=== PATIENT | female | born 1975 | race Caucasian/White ===

== ENCOUNTER 2017-09-13 04:53 | Emergency (ER) | payer MEDICAID ==
[2017-09-13 04:59] VITALS: BMI 62.6
[2017-09-13 05:02] VITALS: TEMP 97.6
[2017-09-13] MEDS ORDERED: DiphenhydrAMINE 50 mg/ml Inj IV STA (05:06)
--- NOTE | 2017-09-13 05:10 | ED PDOC ---
HPI: Allergic Reaction Time Seen by Provider: 09/13/17 04:57 Chief Complaint (Nursing): Allergic Reaction Chief Complaint (Provider): allergic reaction History Per: Patient History/Exam Limitations: no limitations Onset/Duration Of Symptoms: Hrs Current Symptoms Are (Timing): Still Present Possible Cause: Medication Associated Symptoms: Skin Rash, Swelling, Dyspnea Additional History Per: Patient Additional Complaint(s): 41 y/o female presents with allergic reaction x 4 hours. Patient states she has been taking an antibiotic, name unknown, given by a friend for a possible sinus infection for 5 days; notes yesterday to have developed a few red bumps to her skin. Patient states as of a few hours ago the bumps became worse and itchy, with swelling to lower lip, and difficulty breathing. Patient was given a claritin by her friend 1 hour prior to arrival with little improvement of symptoms. Aside from antibiotic, patient denies known allergen. Denies fever, headache, dizziness, nausea/vomiting, chest pain, palpitations, abdominal pain Past Medical History Reviewed: Historical Data, Nursing Documentation, Vital Signs Vital Signs: Last Vital Signs Temp 97.6 F 09/13/17 04:59 Pulse 101 H 09/13/17 04:59 Resp 18 09/13/17 04:59 BP 200/105 H 09/13/17 04:59 Pulse Ox 99 09/13/17 04:59 - Medical History PMH: No Chronic Diseases - Surgical History Surgical History: No Surg Hx - Family History Family History: States: No Known Family Hx - Home Medications Home Medications: Ambulatory Orders Medication Instructions Recorded DiphenhydrAMINE [Benadryl] 50 mg PO Q6 PRN #30 cap 09/13/17 Famotidine [Pepcid] 20 mg PO BID #8 tab 09/13/17 predniSONE [Prednisone] 60 mg PO DAILY #12 tab 09/13/17 - Allergies Allergies/Adverse Reactions: Allergies Allergy/AdvReac Type Severity Reaction Status Date / Time No Known Allergies Allergy Verified 09/13/17 04:59 Review of Systems ROS Statement: Except As Marked, All Systems Reviewed And Found Negative ENT: Positive for: Other (lip swelling) Respiratory: Positive for: Shortness of Breath Skin: Positive for: Rash Physical Exam - Reviewed Nursing Documentation Reviewed: Yes Vital Signs Reviewed: Yes - Physical Exam Appears: Positive for: Well, Non-toxic, No Acute Distress (speaking in full sentences) Head Exam: Positive for: ATRAUMATIC, NORMAL INSPECTION, NORMOCEPHALIC Skin: Positive for: Rash (diffuse hives) Eye Exam: Positive for: Normal appearance, EOMI, PERRL ENT: Positive for: Other (left lower lip swelling. Uvula midline. Airway patent) . Negative for: Nasal Congestion, Pharyngeal Erythema, Tonsillar Swelling Cardiovascular/Chest: Positive for: Regular Rate, Rhythm Respiratory: Positive for: Normal Breath Sounds Gastrointestinal/Abdominal: Positive for: Normal Exam Extremity: Positive for: Normal ROM Neurologic/Psych: Positive for: Alert, Oriented - ECG O2 Sat by Pulse Oximetry: 99 Disposition - Clinical Impression Clinical Impression: Allergic reaction - Patient ED Disposition Is Patient to be Admitted: No - Disposition Disposition: Transfer of Care Disposition Time: 06:00 Condition: FAIR Prescriptions: DiphenhydrAMINE [Benadryl] 50 mg PO Q6 PRN #30 cap PRN Reason: Allergy Symptoms Famotidine [Pepcid] 20 mg PO BID #8 tab predniSONE [Prednisone] 60 mg PO DAILY #12 tab Forms: [employer] (Telugu) Patient Signed Over To: Paul Whitman Handoff Comments: pending re-eval
[2017-09-13 06:24] VITALS: RESP 20
--- NOTE | 2017-09-13 06:27 | ED PDOC ---
- ECG O2 Sat by Pulse Oximetry: 100 (RA) Pulse Ox Interpretation: Normal Medical Decision Making Medical Decision Making: Time: 6:00 --Patient signed out to me by Jaelyn Duncan PA-C pending reevaluation. Time: 7:00 --Patient signed out by me to Dr. Miguelangel Salvador MD pending reevaluation. Scribe Attestation: Documented by Arthur Be, acting as a scribe for Paul Whitman MD Provider Scribe Attestation: All medical record entries made by the Scribe were at my direction and personally dictated by me. I have reviewed the chart and agree that the record accurately reflects my personal performance of the history, physical exam, medical decision making, and the department course for this patient. I have also personally directed, reviewed, and agree with the discharge instructions and disposition. Disposition - Clinical Impression Clinical Impression: Allergic reaction - POA Present On Arrival: None - Disposition Disposition: Transfer of Care Disposition Time: 07:00 Condition: STABLE Prescriptions: DiphenhydrAMINE [Benadryl] 50 mg PO Q6 PRN #30 cap PRN Reason: Allergy Symptoms Famotidine [Pepcid] 20 mg PO BID #8 tab predniSONE [Prednisone] 60 mg PO DAILY #12 tab Instructions: General Allergic Reaction (ED) Forms: [employer] (Bangladeshi)
[2017-09-13 08:06] VITALS: BP 106/74; PULSE 78
--- NOTE | 2017-09-13 08:11 | ED PDOC ---
- ECG O2 Sat by Pulse Oximetry: 99 - Progress Re-evaluation Time: 08:10 Condition: Improved Disposition - Clinical Impression Clinical Impression: Allergic reaction - POA Present On Arrival: None - Disposition Disposition: Routine/Home Disposition Time: 08:10 Condition: FAIR Prescriptions: DiphenhydrAMINE [Benadryl] 50 mg PO Q6 PRN #30 cap PRN Reason: Allergy Symptoms Famotidine [Pepcid] 20 mg PO BID #8 tab predniSONE [Prednisone] 60 mg PO DAILY #12 tab Instructions: General Allergic Reaction (ED) Forms: [facility] (Colombian)
[2017-09-14 04:09] VITALS: O2SAT 100
== END 2017-09-13 08:35 | disposition home or self-care (01) ==
LOC: H.ER 04:53
DX: T78.40XA Allergy, unspecified, initial encounter (principal)
CPT/HCPCS: 96374; 96375; 99283; J1200; J2930

== ENCOUNTER 2018-12-23 21:22 | Emergency (ER) | payer BC, MEDICAID ==
[2018-12-23 21:22] VITALS: BMI 62.6
[2018-12-23 21:35] VITALS: O2SAT 98
[2018-12-23] MEDS ORDERED: Alum-Mag Hydrox-Simethicone Susp (30 mL) PO ONE (21:57)
[2018-12-23] MEDS ORDERED: Alum-Mag Hydrox-Simethicone Susp (30 mL) ONE (22:04)
--- NOTE | 2018-12-23 22:22 | ED PDOC ---
HPI: General Adult Time Seen by Provider: 12/23/18 21:44 Chief Complaint (Nursing): ENT Problem Chief Complaint (Provider): ENT Problem History Per: Patient History/Exam Limitations: no limitations Onset/Duration Of Symptoms: Mins Current Symptoms Are (Timing): Gone Now Additional Complaint(s): 43 y/o female with a PMHx of gastric bypass presents to the ED for evaluation of a nose bleed, onset less than one hour prior to arrival. Patient states she though it was a runny nose and blood was retracted in towards the throat. Patient reports of swallowing it accidentally and developing a stomach ache shortly after. Patient reports of feeling like she wanted to vomit. Patient states bleeding stopped prior to arrival and is feeling much better now. PMD: in [place], [place] Past Medical History Reviewed: Historical Data, Nursing Documentation, Vital Signs Vital Signs: Last Vital Signs Temp 98.4 F 12/23/18 21:32 Pulse 71 12/23/18 21:32 Resp 17 12/23/18 21:32 BP Pulse Ox 98 12/23/18 21:32 - Medical History PMH: No Chronic Diseases - Surgical History Surgical History: No Surg Hx - Family History Family History: States: Unknown Family Hx - Immunization History Hx Tetanus Toxoid Vaccination: No Hx Influenza Vaccination: No Hx Pneumococcal Vaccination: No - Home Medications Home Medications: Ambulatory Orders Medication Instructions Recorded DiphenhydrAMINE [Benadryl] 50 mg PO Q6 PRN #30 cap 09/13/17 Famotidine [Pepcid] 20 mg PO BID #8 tab 09/13/17 predniSONE [Prednisone] 60 mg PO DAILY #12 tab 09/13/17 - Allergies Allergies/Adverse Reactions: Allergies Allergy/AdvReac Type Severity Reaction Status Date / Time No Known Allergies Allergy Verified 09/13/17 04:59 Review of Systems ENT: Positive for: Other (NOSE BLEED) Gastrointestinal: Positive for: Nausea Physical Exam - Reviewed Nursing Documentation Reviewed: Yes Vital Signs Reviewed: Yes - Physical Exam Appears: Positive for: No Acute Distress Head Exam: Positive for: ATRAUMATIC, NORMOCEPHALIC Skin: Positive for: Normal Color, Warm, Dry Eye Exam: Positive for: Normal appearance, EOMI, PERRL ENT: Positive for: Other (Dried blood noted in the left nare) Neck: Positive for: Normal, Painless ROM Cardiovascular/Chest: Positive for: Regular Rate, Rhythm. Negative for: Murmur Respiratory: Positive for: Normal Breath Sounds. Negative for: Respiratory Distress Gastrointestinal/Abdominal: Positive for: Normal Exam, Soft. Negative for: Tenderness Extremity: Positive for: Normal ROM. Negative for: Deformity Neurologic/Psych: Positive for: Alert, Oriented. Negative for: Motor/Sensory Deficits - ECG O2 Sat by Pulse Oximetry: 98 (RA) Pulse Ox Interpretation: Normal Medical Decision Making Medical Decision Making: Time: 2139 A/P: Nose bleed -- Vital signs stable -- Will observe for an hour. -- Ice pack placed to nose. -- Maalox Plus 30 ml PO Time: 2229 -- Bleeding has stopped, patient states she feels better, vitals stable, very well appearing -- Patient is stable for discharge home with a diagnosis of epistaxis. Patient advised to follow up with ENT specialist for further management. Return parameters discussed ___ Scribe Attestation: Documented by Luis Antonio Vitale, acting as a scribe for Cr Birch MD. Provider Scribe Attestation: All medical record entries made by the Scribe were at my direction and personally dictated by me. I have reviewed the chart and agree that the record accurately reflects my personal performance of the history, physical exam, medical decision making, and the department course for this patient. I have also personally directed, reviewed, and agree with the discharge instructions and disposition. Disposition - Clinical Impression Clinical Impression: Epistaxis - Patient ED Disposition Is Patient to be Admitted: No Counseled Patient/Family Regarding: Studies Performed, Diagnosis, Need For Followup - Disposition Referrals: J Luis Diego MD [Staff Provider] - Disposition: Routine/Home Disposition Time: 22:30 Condition: GOOD Instructions: Nosebleeds Forms: [employer] (Portuguese)
[2018-12-23 22:24] VITALS: BP 122/69
[2018-12-23 22:36] VITALS: PULSE 76; RESP 18; TEMP 98.6
== END 2018-12-23 22:30 | disposition home or self-care (01) ==
LOC: H.ER 21:22
DX: R04.0 Epistaxis (principal); Z98.84 Bariatric surgery status